=== PATIENT | female | born 1980 | race African-American/Black ===

== ENCOUNTER 2018-11-18 19:31 | Inpatient (IN) ==
[2018-11-18] MEDS ORDERED: ONDANSETRON 4 MG/2 ML VIAL IV PRN (20:31)
[2018-11-18] MEDS ORDERED: DINOPROSTONE 10 MG VAG.INSERT VAG ONE (20:31)
[2018-11-18] MEDS ORDERED: BUTORPHANOL 2 MG/ML VIAL IV PRN (20:31)
[2018-11-18 20:57] LABS: Basophils % 0.1 % (0.0-0.8); Eosinophils % 0.4 % (0.00-10.9); Hematocrit 33.3 VOL% (35.7-47.0); Hemoglobin 10.4 GM/DL (12.0-16.0); Immature Granulocytes % 1.3 %; Immature Granulocytes Absolute 0.12 #; Lymphocytes # 1.6 10*3/uL (1.4-4.0); Lymphocytes % 17.3 % (21.3-54.2); Mean Corpuscular HGB Conc 31.2 GM/DL (32-36); Mean Corpuscular Volume 85.4 FL (87-102); Mean Platelet Volume 9.4 FL (9.6-12.0); Monocytes % 9.4 % (1.7-12.7); Neutrophils % 71.5 % (38.7-73.9); Platelet Count 314 T/CUMM (130-400); Red Cell Distribution Width 15.8 % (9.3-17.3); White Blood Count 9.1 T/CUMM (4-12)
[2018-11-19] MEDS: AMPICILLIN INJ 2,000 MG in SODIUM CHLORIDE 0.9% 100 ML IV SCH ×5 (02:01→13:59)
[2018-11-19] MEDS: LACTATED RINGERS 1,000 ML IV SCH ×4 (05:22→14:06)
[2018-11-19] MEDS: OXYTOCIN/LR 20 UNIT/1,000 ML BAG IV SCH ×2 (06:06→23:25)
[2018-11-19] MEDS ORDERED: FAMOTIDINE 20 MG/2 ML VIAL IV ONE (07:27)
[2018-11-19] MEDS ORDERED: diphenhydrAMINE 50 MG/1 ML VIAL IV PRN ×2 (07:27)
[2018-11-19] MEDS ORDERED: hydrOXYzine HCL 25 MG/1 ML VIAL IM PRN (07:27)
[2018-11-19] MEDS ORDERED: ePHEDrine 50 MG/ML AMP IV PRN (07:27)
[2018-11-19] MEDS ORDERED: CITRIC ACID/SODIUM CITRATE 30 ML UDCUP PO ONE (07:27)
[2018-11-19] MEDS ORDERED: NALOXONE 0.4 MG/ML VIAL IV PRN (07:27)
[2018-11-19] MEDS ORDERED: PROMETHAZINE 25 MG/1 ML VIAL IM ONE (07:27)
[2018-11-19] MEDS ORDERED: ONDANSETRON 4 MG/2 ML VIAL IV ONE (07:27)
[2018-11-19] MEDS ORDERED: fentaNYL 2 MCG/ROPIV 0.2% EPID 100 ML EPIDURAL SCH (07:30)
[2018-11-19 11:19] LABS: Amorphous Crystals,Urine Few /HPF (Few); Apearance,Urine CLEAR (Clear); Bilirubin,Urine Negative (Negative); Blood, Urine Negative (Negative); Glucose,Urine (UA) Negative (Negative); Ketones,Urine 20 mg/dL (Negative); Mucus,Urine Occasional /LPF (Occasional); Nitrite,Urine Negative (Negative); Protein,Urine Negative; RBC,Urine 1 /HPF (0-4); Squamous Epithelial Cell,Urine Occasional /HPF (0-10); Urine Color Yellow (Yellow); Urine Specific Gravity 1.017 (1.001-1.035); Urine Urobilinogen < 2.0 EU/DL (0.2-1.0); WBC,Urine 8 /HPF (0-6)
[2018-11-19] MEDS ORDERED: miSOPROStol 200 MCG TABLET ONE (17:24)
[2018-11-19] MEDS ORDERED: CARBOPROST TROMETHAMINE 250 MCG/ML AMP IM ONE (17:26)
[2018-11-19] MEDS ORDERED: LIDOCAINE 1% 50 ML VIAL ONE (17:26)
[2018-11-19] MEDS ORDERED: fentaNYL 100 MCG/2 ML VIAL ONE (17:47)
[2018-11-19] MEDS ORDERED: LIDOCAINE MPF 2% /EPI 20 ML VIAL ONE (18:14)
[2018-11-19] MEDS ORDERED: ACETAMINOPHEN 325 MG TABLET PO PRN (20:00)
[2018-11-19] MEDS ORDERED: LACTATED RINGERS 1,000 ML IV SCH (20:00)
[2018-11-19] MEDS ORDERED: BISACODYL 10 MG SUPP RECTAL PRN (20:00)
[2018-11-19] MEDS ORDERED: MAGNESIUM HYDROXIDE SUSP 30 ML UDCUP PO PRN (20:00)
[2018-11-19] MEDS: IBUPROFEN 800 MG TABLET PO PRN (21:38)
[2018-11-20] MEDS: DOCUSATE SODIUM 100 MG CAPSULE PO SCH ×3 (01:18→21:53)
[2018-11-20 03:45] LABS: Basophils % 0.1 % (0.0-0.8); Eosinophils % 0.1 % (0.00-10.9); Hematocrit 30.2 VOL% (35.7-47.0); Hemoglobin 9.3 GM/DL (12.0-16.0); Lymphocytes # 1.1 10*3/uL (1.4-4.0); Lymphocytes % 5.7 % (21.3-54.2); Mean Corpuscular HGB Conc 30.8 GM/DL (32-36); Mean Corpuscular Volume 86.5 FL (87-102); Mean Platelet Volume 9.6 FL (9.6-12.0); Monocytes % 7.7 % (1.7-12.7); Neutrophils % 85.4 % (38.7-73.9); Platelet Count 288 T/CUMM (130-400); Red Blood Count 3.49 MC/CUMM (3.8-5.5); Red Cell Distribution Width 15.8 % (9.3-17.3); White Blood Count 19.2 T/CUMM (4-12)
[2018-11-20] MEDS: IBUPROFEN 800 MG TABLET PO PRN ×2 (06:29→21:53)
[2018-11-20] MEDS: MULTIVITAMIN (PRENATAL) TABLET PO SCH (09:07)
[2018-11-20] MEDS: ASPIRIN EC 81 MG TABLET PO SCH (14:57)
[2018-11-21 07:31] VITALS: BP 110/86
[2018-11-21] MEDS ORDERED: DIPH/TET/ACEL PERT BOOSTER VACCINE 0.5 ML VIAL IM ONE (09:00)
[2018-11-21] MEDS: MULTIVITAMIN (PRENATAL) TABLET PO SCH (09:37)
[2018-11-21] MEDS: DOCUSATE SODIUM 100 MG CAPSULE PO SCH (09:38)
[2018-11-21] MEDS: ASPIRIN EC 81 MG TABLET PO SCH (09:59)
== END 2018-11-21 13:30 | disposition home or self-care (01) | DRG 807 ==
LOC: N.LDOUT 19:31 → N.LD 20:02 → N.OB 11-19 23:43
PROVIDERS: ADMIT Obstetrics & Gynecology; ATTEND Obstetrics & Gynecology